=== PATIENT | female | born 1945 | race Caucasian/White ===

== ENCOUNTER 2022-03-31 09:25 | Day surgery (SDC) | payer OTHER ==
[2022-03-26 09:07] VITALS: BMI 34.0
[2022-03-31 10:08] VITALS: TEMP 97.8
[2022-03-31] MEDS ORDERED: ceFAZolin SODIUM 1 GM VIAL ONE (12:07)
[2022-03-31] MEDS ORDERED: ERYTHROMYCIN 0.5% OPHTHALMIC OINTMENT 3.5 GM TUBE ONE (12:08)
[2022-03-31] MEDS ORDERED: TETRACAINE 0.5% OPHTH SOLN 2 ML BOTTLE ONE (12:08)
[2022-03-31] MEDS ORDERED: EPINEPHrine/PF 1 MG/1 ML (1:1,000) AMPULE ONE (12:08)
[2022-03-31] MEDS ORDERED: LIDOCAINE HCL 1%, 10 MG/ML (20ML VIAL) ONE (12:08)
[2022-03-31] MEDS ORDERED: BUPIVACAINE HCL 50 ML ONE (12:08)
[2022-03-31] MEDS ORDERED: POVIDONE-IODINE 5% OPHTHALMIC PREP 30 ML SOLUTION ONE (12:08)
[2022-03-31] MEDS ORDERED: ROCURONIUM BROMIDE 50 MG/5 ML SYRINGE ONE (12:24)
[2022-03-31] MEDS ORDERED: PROPOFOL 40 ML ONE (12:24)
[2022-03-31] MEDS ORDERED: MIDAZOLAM HCL 2 MG/2 ML SINGLE DOSE VIAL ONE ×3 (12:25→13:59)
[2022-03-31] MEDS ORDERED: ACETAMINOPHEN 325 MG TABLET (FP) PO PRN (14:26)
[2022-03-31] MEDS ORDERED: ONDANSETRON 4 MG/2 ML VIAL IVPUSH PRN (14:26)
[2022-03-31] MEDS ORDERED: oxyCODONE HCL 5 MG TABLET PO PRN ×2 (14:26)
[2022-03-31 15:47] VITALS: BP 125/50; PULSE 49
[2022-03-31 15:50] VITALS: RESP 18
== END 2022-03-31 15:50 | disposition home or self-care (01) ==
LOC: FASU 09:25
PROVIDERS: ATTEND Ophthalmology
PROC: 0KX10ZZ Transfer Facial Muscle, Open Approach (ICD-10-PCS; 2022-03-31)
PROC: 08SR0ZZ Reposition Left Lower Eyelid, Open Approach (ICD-10-PCS; principal; 2022-03-31 13:03)
DX: L98.7 Excessive and redundant skin and subcutaneous tissue (principal); Z85.828 Personal history of other malignant neoplasm of skin
CPT/HCPCS: 87426; 94760